=== PATIENT | male | born 1950 | race Caucasian/White ===

== ENCOUNTER 2016-10-08 17:38 | Emergency (ER) | payer OTHER ==
[2016-10-08 17:48] VITALS: BP 212/140
--- NOTE | 2016-10-08 18:12 | UC ---
Cardiac HPI - HPI Summary HPI Summary: comes in today with high blood pressure---reports taking his medication faithfully but he has been drinking up to 10 alcoholic beverages daily and has quit 3 days ago----patient states he did have some shest discomfort yesterday but none today - History of Current Complaint Chief Complaint: UCChestPain Stated Complaint: HIGH BLOOD PRESSURE Time Seen by Provider: 10/08/16 17:40 Hx Obtained From: Patient, Family/Agency Sales Development Associate Onset/Duration: Gradual Onset, Lasting Days, Still Present Timing: Constant Initial Severity: Moderate Current Severity: Moderate Aggravating: Nothing Alleviating: Nothing - Allergy/Home Medications Allergies/Adverse Reactions: Allergies Allergy/AdvReac Type Severity Reaction Status Date / Time No Known Allergies Allergy Verified 10/08/16 19:45 Home Medications: Home Medications Apixaban* [Eliquis*] 5 mg PO BID 10/08/16 [History Confirmed 10/08/16] Carvedilol TAB* [Coreg TAB*] 3.125 mg PO BID 10/08/16 [History Confirmed ] PMH/Surg Hx/FS Hx/Imm Hx Previously Healthy: No Cardiovascular History: Cardiac Disease, Hypertension - Surgical History Surgical History: Yes Surgery Procedure, Year, and Place: BILAT CATARACTS 2003, 2011 [facility] [place] - Family History Known Family History: Positive: None - Social History Occupation: Employed Full-time Lives: With Family Alcohol Use: Daily Alcohol Amount: Heavy drinker, quit on 10/05/16 Substance Use Type: None Smoking Status (MU): Never Smoked Tobacco Review of Systems Constitutional: Negative Skin: Negative Eyes: Negative ENT: Negative Respiratory: Negative Cardiovascular: Negative Gastrointestinal: Negative Genitourinary: Negative Motor: Negative Neurovascular: Negative Musculoskeletal: Negative Neurological: Negative Psychological: Negative All Other Systems Reviewed And Are Negative: Yes Physical Exam Triage Information Reviewed: Yes Appearance: Well-Appearing, Well-Nourished, Obese Vital Signs: Initial Vital Signs Temp 98.5 F 10/08/16 17:41 Pulse 87 10/08/16 17:41 Resp 19 10/08/16 17:41 BP 212/140 10/08/16 17:41 Pulse Ox 98 10/08/16 17:41 Vital Signs Reviewed: Yes Eye Exam: Normal Eyes: Positive: Conjunctiva Clear ENT Exam: Normal ENT: Positive: Normal ENT inspection, Hearing grossly normal. Negative: Nasal drainage Dental Exam: Normal Neck exam: Normal Neck: Positive: Supple, Nontender, No Lymphadenopathy Respiratory Exam: Normal Respiratory: Positive: Chest non-tender, Lungs clear, Normal breath sounds, No respiratory distress, No accessory muscle use Cardiovascular Exam: Normal Cardiovascular: Positive: RRR, No Murmur, Pulses Normal Bowel Sounds: Positive: Present Musculoskeletal Exam: Normal Musculoskeletal: Positive: Strength Intact, ROM Intact, No Edema Neurological Exam: Normal Neurological: Positive: Alert, Muscle Tone Normal Psychological Exam: Normal Psychological: Positive: Normal Response To Family Skin Exam: Normal Skin: Positive: rashes Diagnostics - EKG Cardiac Rate: NL Cardiac Rhythm: Sinus: Normal Ectopy: None ST Segment: Normal - Assessment/Plan Course Of Treatment: trasfer to [facility] [place], [place]---by [facility] [place] [place]---report given to EMS - Differential Diagnoses - Chest Pain Differential Diagnosis/HQI/PQRI: Angina, Aortic Aneurysm - Differential Diagnoses - Hypertension Differential Diagnosis/HQI PQRI: Drug Withdrawal - Clinical Impression Provider Diagnoses: HTN, Acute alcohol w/d Discharge - Discharge Plan Condition: Guarded Disposition: TRANS [facility] Referrals: Vivek Weston MD [Primary Care Provider] -
== END 2016-10-08 18:42 | disposition short-term general hospital (02) ==
LOC: UCEAST 17:38
DX: I10 Essential (primary) hypertension (principal); F10.239 Alcohol dependence with withdrawal, unspecified; E66.9 Obesity, unspecified; Z98.42 Cataract extraction status, left eye; Z98.41 Cataract extraction status, right eye
CPT/HCPCS: 93005; 99203; G0463

== ENCOUNTER 2016-10-08 18:58 | Emergency (ER) | payer OTHER ==
[2016-10-08] MEDS ORDERED: Labetalol IV* 5 MG/ML 20 ML VIAL IV PUSH ONE (20:04)
[2016-10-08 20:40] LABS: Hematocrit 46 % (42-52); Hemoglobin 15.4 g/dl (14.0-18.0); Mean Corpuscular HGB Conc 34 g/dl (31-36); Mean Corpuscular Hemoglobin 33 pg (27-31); Mean Corpuscular Volume 97 fL (80-94); Mean Platelet Volume 9 um3 (7.4-10.4); Red Blood Count 4.75 10^6/ul (4.0-5.4); Red Cell Distribution Width 15 % (10.5-15); White Blood Count 9.3 10^3/ul (3.5-10.8)
--- NOTE | 2016-10-08 20:43 | ED ---
Mickey Dutton Thomas, scribed for Rafael Domingo MD on 10/08/16 at 2006 . Hypertension - HPI Summary HPI Summary: The pt is a 66 y/o M with a SHx of heavy drinking presenting to the ED c/o HTN s /p stopping drinking three days ago. He reports that his BP began to spike around 12:00 today and was as high as 220/145. His HTN is normally under control with his Indapamide and an unspecified beta sarah. He states that he is compliant with medication. When he stopped drinking for a period of time 6 months ago, his BP spiked after a couple of days, but not to this severity. He additionally c/o mild CP that began four days ago. He last saw his PCP two months ago. He sees a vehicle service attendant as well. PMHx: A-Fib, CAD, and HTN (normally well-controlled). He was seen earlier to day at [facility]. - History of Current Complaint Chief Complaint: EDHypertension Stated Complaint: HIGH BP Time Seen by Provider: 10/08/16 19:50 Hx Obtained From: Patient Onset/Duration: Started Hours Ago - at 12:00 today, Still Present Timing: Constant Associated Signs & Symptoms: Chest Pain - mild, onset four days ago, Other: - POS: stopped heavy drinking three days ago - Allergies/Home Medications Allergies/Adverse Reactions: Allergies Allergy/AdvReac Type Severity Reaction Status Date / Time No Known Allergies Allergy Verified 10/08/16 19:45 PMH/Surg Hx/FS Hx/Imm Hx Previously Healthy: No Endocrine/Hematology History: Denies: Hx Diabetes, Hx Thyroid Disease Cardiovascular History: Reports: Hx Coronary Artery Disease, Hx Hypertension - WELL CONTROLLED, Other Cardiovascular Problems/Disorders - CHRONIC AFIB Denies: Hx Pacemaker/ICD Respiratory History: Reports: Hx Asthma - SEASONAL, Hx Sleep Apnea - HX OF Denies: Hx Chronic Obstructive Pulmonary Disease (COPD) GI History: Denies: Hx Ulcer History: Denies: Hx Renal Disease Musculoskeletal History: Reports: Hx Arthritis - ELBOWS, Other Musculoskeletal History - CURRENT RIGHT ROTATOR CUFF TEAR Sensory History: Reports: Hx Contacts or Glasses - GLASSES Denies: Hx Hearing Aid Opthamlomology History: Reports: Hx Contacts or Glasses - GLASSES Psychiatric History: Reports: Hx Anxiety - NO MEDS Denies: Hx Panic Disorder - Surgical History Surgery Procedure, Year, and Place: BILAT CATARACTS 2004, 2012 [facility] Hx Anesthesia Reactions: No Infectious Disease History: No Infectious Disease History: Denies: Hx Clostridium Difficile, Hx Hepatitis, Hx Human Immunodeficiency Virus (HIV), Hx of Known/Suspected MRSA, Hx Shingles, Hx Tuberculosis, Hx Known/ Suspected VRE, Hx Known/Suspected VRSA, History Other Infectious Disease, Traveled Outside the [place] in Last 30 Days - Family History Known Family History: Positive: Other - POS: CHF; NEG: [place] - Social History Alcohol Use: Daily Alcohol Amount: Heavy drinker, quit on 10/05/16 Substance Use Type: Reports: None Smoking Status (MU): Never Smoked Tobacco Review of Systems Constitutional: Negative Eyes: Negative ENT: Negative Cardiovascular: Other - POS: HTN Positive: Chest Pain - mild, onset 4 days ago Respiratory: Negative Gastrointestinal: Negative Genitourinary: Negative Musculoskeletal: Negative Skin: Negative Neurological: Negative Psychological: Other - POS: ceased drinking three days ago All Other Systems Reviewed And Are Negative: Yes Physical Exam Triage Information Reviewed: Yes Vital Signs On Initial Exam: Initial Vitals Temp 98.2 F 10/08/16 19:47 Vital Signs Reviewed: Yes Appearance: Positive: Well-Appearing, No Pain Distress Skin: Positive: Warm Head/Face: Positive: Normal Head/Face Inspection Eyes: Positive: MAZIN ENT: Positive: Hearing grossly normal Neck: Positive: Supple Respiratory/Lung Sounds: Positive: Breath Sounds Present Cardiovascular: Positive: RRR Abdomen Description: Positive: Nontender, Soft Bowel Sounds: Positive: Present Musculoskeletal: Positive: Strength/ROM Intact Neurological: Positive: Alert, Oriented to Person Place, Time Diagnostics - Vital Signs Vital Signs Temp Pulse Resp BP Pulse Ox 10/08/16 19:49 98.2 F 66 16 198/128 96 10/08/16 19:47 98.2 F - Laboratory Result Diagrams: 10/08/16 20:33 10/08/16 20:33 Lab Statement: Any lab studies that have been ordered have been reviewed, and results considered in the medical decision making process. Hypertension Course/Dx - Diagnoses Provider Diagnoses: Hypertension Discharge - Discharge Plan Condition: Stable Disposition: HOME Patient Education Materials: Hypertension (ED) Referrals: Vivek Weston MD [Primary Care Provider] - 3 Days (Follow up with your primary care physician. ) The documentation as recorded by the Mickey keith Thomas accurately reflects the service I personally performed and the decisions made by me, Rafael Domingo MD.
[2016-10-08 20:56] LABS: Albumin 3.9 g/dL (3.2-5.2); BUN/Creatinine Ratio 15.2 (8-20); Calcium 9.4 mg/dL (8.6-10.3); EGFR African American 97.3 (>60); EGFR Non-African American 75.6 (>60); Globulin 3.4 g/dL (2-4); Potassium 3.8 mmol/L (3.5-5.0); Total Protein 7.3 g/dL (6.4-8.9)
[2016-10-08 20:58] LABS: Troponin I 0.01 ng/mL (<0.04)
[2016-10-08] MEDS ORDERED: cloNIDine TAB* 0.1 MG PO ONE (21:24)
[2016-10-09 00:44] VITALS: BP 138/105
== END 2016-10-09 00:45 | disposition home or self-care (01) ==
LOC: ED 18:58
DX: I10 Essential (primary) hypertension (principal); I48.91 Unspecified atrial fibrillation; I25.10 Atherosclerotic heart disease of native coronary artery without angina pectoris
CPT/HCPCS: 36415; 80053; 82550; 83605; 84484; 85025; 93005; 96374; 99285; A9270-GY